=== PATIENT | female | born 1950 | race Caucasian/White ===

== ENCOUNTER 2017-12-12 06:47 | Emergency (ER) | payer MEDICARE, BC ==
[~2017-12-12] VITALS: Ht 167.6 cm; Wt 101.7 kg
[~2017-12-12 06:47] MED LIST: HYDR-565 PO
[2017-12-12] MEDS ORDERED: famotidine 20mg tablet PO ONE (08:50)
[2017-12-12] MEDS ORDERED: diphenhydrAMINE 50 mg/ml inj IM ONE (08:50)
[2017-12-12] MEDS ORDERED: predniSONE 20 mg tablet PO ONE (08:50)
[2017-12-12] MEDS ORDERED: PRED20TA PO (08:55)
[2017-12-12] MEDS ORDERED: FAMO-128 PO (08:55)
[2017-12-12] MEDS ORDERED: DIPH25CA83 PO (08:55)
[2017-12-12 09:00] VITALS: BP 131/81
== END 2017-12-12 09:30 | disposition home or self-care (01) ==
LOC: ER 06:48
DX: L50.9 Urticaria, unspecified (principal); I10 Essential (primary) hypertension; Z90.710 Acquired absence of both cervix and uterus; Z88.0 Allergy status to penicillin; Z79.899 Other long term (current) drug therapy
CPT/HCPCS: 96372; 99283; J1200; J7512

== ENCOUNTER 2021-01-09 12:34 | Emergency (ER) | payer MEDICARE, BC ==
[~2021-01-09] VITALS: Ht 167.6 cm; Wt 104.5 kg
[~2021-01-09 12:34] MED LIST changes: +ASPI-1071 PO; +DICL75TA5 PO; -HYDR-565 PO; +LABE100T5 PO; +LEVO100T PO; +PANT40TA54 PO
[2021-01-09 12:37] VITALS: BP 172/87
[2021-01-09] MEDS ORDERED: bacitracin 15gm ointment TP ONE (12:55)
[2021-01-09] MEDS ORDERED: LIDOcaine 1% W/epiNEPHrine 1:200,000 10ml vial IJ ONE (12:55)
[2021-01-09] MEDS ORDERED: TETanus/Pertussis (Acell)/Diphther VAC/PF (Tdap-Adult) 0.5ml syringe IMVAC ONE (12:55)
== END 2021-01-09 14:39 | disposition home or self-care (01) ==
LOC: ER 12:35
DX: S61.412A Laceration without foreign body of left hand, initial encounter (principal); I10 Essential (primary) hypertension; Z90.710 Acquired absence of both cervix and uterus; Z88.0 Allergy status to penicillin; Z79.82 Long term (current) use of aspirin; Z79.899 Other long term (current) drug therapy; W26.8XXA Contact with other sharp object(s), not elsewhere classified, initial encounter; Y93.89 Activity, other specified; Y92.89 Other specified places as the place of occurrence of the external cause; Y99.8 Other external cause status
CPT/HCPCS: 12001; 90471; 90715; 99284